=== PATIENT | male | born 1935 | race African-American/Black ===

== ENCOUNTER 2016-10-22 11:24 | Emergency (ER) | payer MEDICARE, MEDICAID ==
[~2016-10-22] VITALS: Ht 180.3 cm; Wt 86.0 kg
[~2016-10-22 11:24] MED LIST: ALLO300T2 PO; COR12 PO; DOCU-138 PO; FERR-63 PO; GLIM2TAB2 PO; MECL-109 PO; OMEP20CA4 PO; PIOG15TA6 PO
[2016-10-22 12:21] LABS: HEMOGLOBIN. 10.6 g/dL (14.0-18.0); MEAN CORPUSCULAR HEMOGLOBIN 34.3 pg (28.0-32.0); MEAN CORPUSCULAR VOLUME 103.9 fL (80.0-94.0); MEAN PLATELET VOLUME 7.5 fl (7.4-10.4); PLATELET 92 x1000/uL (130-400); RED BLOOD CELL COUNT 3.08 mill/uL (4.7-6.1); RED CELL DISTRIBUTION WIDTH 16.7 % (11.6-14.6)
[2016-10-22 12:26] LABS: INR 1.3; PROTHROMBIN TIME 13.4 sec
[2016-10-22 12:47] LABS: PLATELET ESTIMATE DECREASED
[2016-10-22 15:52] VITALS: BP 124/67
== END 2016-10-22 15:54 | disposition home or self-care (01) ==
LOC: ER 11:48
DX: K74.60 Unspecified cirrhosis of liver (principal); R18.8 Other ascites; R06.00 Dyspnea, unspecified; E11.9 Type 2 diabetes mellitus without complications; H40.9 Unspecified glaucoma; I10 Essential (primary) hypertension; M10.9 Gout, unspecified; Z87.891 Personal history of nicotine dependence
CPT/HCPCS: 36415; 49083; 80048; 85025; 85610; 99285